=== PATIENT | female | born 1960 | race Two or more races ===

== ENCOUNTER 2020-09-10 22:21 | Emergency (ER) | payer OTHER ==
[~2020-09-10] VITALS: Ht 152.4 cm; Wt 54.6 kg
[2020-09-10 23:05] LABS: BILIRUBIN,URINE NEGATIVE (NEG); CLARITY,URINE CLEAR; COLOR,URINE YELLOW; NITRITE,URINE NEGATIVE (NEG); PROTEIN,URINE NEGATIVE (NEG-TRACE)
--- NOTE | 2020-09-10 23:05 | PHYS DOC ---
Past Medical History Past Medical History: Gallstones Past Surgical History: Additional Past Surgical Histo: X3 Smoking Status: Never Smoker Alcohol Use: None General Adult EDM: Chief Complaint: ABDOMINAL PAIN HPI: HPI: Patient is a 60 year old female presents with a chief complaint of abdominal pain. Patient states she has a past medical history of gallstones. Patient states pain is located primarily in the right upper quadrant with radiation to bilateral flanks. Patient states she has associated nausea but has not vomited or had episodes of diarrhea. Onset of abdominal pain was comes and goes since onset. History obtained from the patient via [employer] phone. Review of Systems: Review of Systems: Constitutional: Denies fever or chills. [] Eyes: Denies change in visual acuity. [] HENT: Denies nasal congestion or sore throat. [] Respiratory: Denies cough or shortness of breath. [] Cardiovascular: Denies chest pain or edema. [] GI: Positive abdominal pain, Positive nausea, no vomiting, bloody stools or diarrhea. [] : Denies dysuria. [] Musculoskeletal: Denies back pain or joint pain. [] Integument: Denies rash. [] Neurologic: Denies headache, focal weakness or sensory changes. [] Endocrine: Denies polyuria or polydipsia. [] Lymphatic: Denies swollen glands. [] Psychiatric: Denies depression or anxiety. [] Heart Score: Risk Factors: Risk Factors: DM, Current or recent (<one month) smoker, HTN, HLP, family history of CAD, obesity. Risk Scores: Score 0 - 3: 2.5% MACE over next 6 weeks - Discharge Home Score 4 - 6: 20.3% MACE over next 6 weeks - Admit for Clinical Observation Score 7 - 10: 72.7% MACE over next 6 weeks - Early Invasive Strategies Current Medications: Current Medications Medications (Trade) Dose Ordered Sig/Kwame Start Time Stop Time Status Last Admin Dose Admin Morphine Sulfate (Morphine Sulfate) 2 mg 1X ONCE 09/10/20 23:30 09/10/20 23:31 Ondansetron HCl (Zofran) 4 mg 1X ONCE 09/10/20 23:30 09/10/20 23:31 Allergies: Allergies: Allergies Coded Allergies Type Severity Reaction Last Updated Verified No Known Drug Allergies 09/10/20 No Physical Exam: PE: General: alert, no acute distress. Skin: warm, dry and intact. Head:: Normocephalic, atraumatic. Neck: Trachea midline. Eyes: EOMI, Normal conjunctiva, No drainage CARDIOVASCULAR: Regular rate and rhythm RESPIRATORY: No respiratory distress Back: Full range of motion. MUSCULOSKELETAL: Full range of motion of bilateral upper and lower extremities. GASTROINTESTINAL: Abdomen soft without rebound or guarding. Tenderness palpation right upper quadrant and epigastric NEUROLOGICAL: Alert and noted to person, place and time. No neurological deficits observed Psychiatric: Cooperative. Normal judgment Current Patient Data: Labs: Laboratory Tests Test 09/10/20 22:40 POC Urine HCG, Qualitative Hcg negative (Negative) Vital Signs: Vital Signs Date Time Temp Pulse Resp B/P (MAP) Pulse Ox O2 Delivery O2 Flow Rate FiO2 09/10/20 22:40 97.6 80 16 147/86 (106) 100 Room Air 97.6 EKG: EKG: [] Radiology/Procedures: Radiology/Procedures: [] Impression: The right kidney measures approximately 9.2 cm in length noting that the inferior pole was difficult to visualize due to bowel gas. No hydronephrosis. Unremarkable IVC at the liver. Impression: 1. Several gallstones however without ancillary findings by ultrasound to suggest acute cholecystitis. If there is ongoing concern a HIDA scan could be performed. Normal common bile duct caliber. 2. Unremarkable liver and partially assessed right kidney and spleen. Course & Med Decision Making: Course & Med Decision Making Pertinent Labs and Imaging studies reviewed. (See chart for details) [] Patient was evaluated for chief complaint. Work-up consisted of laboratory analysis and radiologic imaging. Results reviewed and discussed with patient. Gallbladder consistent with cholelithiasis no ultrasound findings of acute cholecystitis. Patient's pain was treated with morphine patient's nausea was treated with Zofran. Symptoms improved post treatment. Patient was discharged home with Jelm and Zofran. Patient was given referral to on-call general surgery. Vladimir Disclaimer: Vladimir Disclaimer: This electronic medical record was generated, in whole or in part, using a voice recognition dictation system. Departure Departure Impression: Primary Impression: Abdominal pain Additional Impression: Cholelithiasis Disposition: 01 DC HOME SELF CARE/HOMELESS Condition: STABLE Patient Instructions: Cholelithiasis Scripts Ondansetron Hcl (ZOFRAN) 4 Mg Tablet 1 TAB PO Q6HRS, #20 TAB Prov: DEMARCUS SU DO 09/11/20 Hydrocodone/Acetaminophen (Hydrocodone-Acetamin 5-325 mg) 1 Each Tablet 1 EACH PO Q4-6HRS, #20 TAB Prov: DEMARCUS SU DO 09/11/20 DEMARCUS SU DO Sep 10, 2020 23:05
[2020-09-10 23:11] LABS: BASO % 0 % (0-3); EOS % 0 % (0-3); HEMATOCRIT 41.7 % (36.0-47.0); HEMOGLOBIN 14.1 g/dL (12.0-15.5); LYMPH # 1.4 x10^3/uL (1.0-4.8); LYMPH % 15 % (24-48); MEAN CORPUSCULAR HEMOGLOBIN 30 pg (25-35); MEAN CORPUSCULAR HGB CONC 34 g/dL (31-37); MEAN CORPUSCULAR VOLUME 88 fL (79-100); MONO # 0.2 x10^3/uL (0.0-1.1); MONO % 3 % (0-9); NEUT # 7.3 x10^3/uL (1.8-7.7); NEUT % 82 % (31-73); PLATELET COUNT 256 x10^3/uL (140-400); RED BLOOD COUNT 4.76 x10^6/uL (3.50-5.40); RED CELL DISTRIBUTION WIDTH 13.3 % (11.5-14.5)
[2020-09-10 23:15] LABS: BACTERIA,URINE 0 /HPF (0-FEW); RBC,URINE 0 /HPF (0-2); WBC,URINE RARE /HPF (0-4)
[2020-09-10 23:17] LABS: CALCIUM 8.9 mg/dL (8.5-10.1); CREATININE 0.8 mg/dL (0.6-1.0); GFR 73.4; POTASSIUM 4.3 mmol/L (3.5-5.1)
[2020-09-10 23:23] LABS: TOTAL BILIRUBIN 0.4 mg/dL (0.2-1.0); TOTAL PROTEIN 8.1 g/dL (6.4-8.2)
[2020-09-10] MEDS ORDERED: ONDANSETRON PF 4 MG/2 ML VIAL. IVP ONE (23:30)
[2020-09-10] MEDS ORDERED: MORPHINE SULFATE 2 MG/ML VIAL. IV ONE (23:30)
--- NOTE | 2020-09-10 23:53 | RAD ---
STUDY: Realtime grayscale and color Doppler ultrasonography of the right upper quadrant INDICATION: Right upper quadrant abdominal pain. History of gallstones. COMPARISON: None available. Findings: What is seen of the pancreas is unremarkable. Within normal limits size and echogenicity of the liver. Patent main portal vein with normal flow dir ection. The gallbladder is notable only for several shadowing stones. Normal wall thickness at 0.2 cm. No son ographic Nguyen's sign was observed. Normal common bile duct caliber at 0.4 cm. The right kidney measures approximately 9.2 cm in length noting that the inferior pole was difficult to visualize due to bowel gas. No hydronephrosis. Unremarkable IVC at the liver. Impression: 1. Several gallstones however without ancillary findings by ultrasound to suggest acute cholecystiti s. If there is ongoing concern a HIDA scan could be performed. Normal common bile duct caliber. 2. Unremarkable liver and partially assessed right kidney and spleen. Electronically signed by: MARCUS MICHELLE MD (09/10/2020 11:51 PM) [facility]
[2020-09-11] MEDS ORDERED: HYDR-2759 PO (00:08)
[2020-09-11] MEDS ORDERED: ONDA4TAB7 PO (00:08)
[2020-09-11 00:23] VITALS: BP 129/68
[2020-10-04] MEDS ORDERED: ACET325T21 PO (16:52)
[2020-10-04] MEDS ORDERED: CHOL500050 PO (16:52)
[2020-10-04] MEDS ORDERED: CALC600T23 PO (16:52)
== END 2020-09-11 00:25 | disposition home or self-care (01) ==
LOC: ER 22:21
DX: K80.20 Calculus of gallbladder without cholecystitis without obstruction (principal)
CPT/HCPCS: 36415; 76705; 80053; 81001; 81025; 83690; 85025; 96374; 96375; 99285; J2270; J2405

== ENCOUNTER → 2020-10-01 | Outpatient (CLI) | payer OTHER ==
[2020-09-11 00:23] VITALS: BP 129/68
[~2020-10-01] MED LIST: ACET325T21 PO; CALC600T23 PO; CHOL500050 PO; HYDR-2759 PO; ONDA4TAB7 PO
== END ==
LOC: LAB 14:08
PROVIDERS: ATTEND Surgery
DX: Z01.812 Encounter for preprocedural laboratory examination (principal); K80.20 Calculus of gallbladder without cholecystitis without obstruction; Z20.822 Contact with and (suspected) exposure to COVID-19
CPT/HCPCS: U0003

== ENCOUNTER 2020-10-06 06:04 | Day surgery (SDC) | payer OTHER ==
[~2020-10-06] VITALS: Ht 147.3 cm; Wt 54.0 kg
[~2020-10-06 06:04] MED LIST changes: +HYDROmorphone 2 MG/ML VIAL IVP PRN; +IV RINGERS,LACTATED 1000ML 1,000 ML IV SCH; +MORPHINE SULFATE 2 MG/ML VIAL. IVP PRN; +PROCHLORPERAZINE 10 MG/2 ML VIAL. IVP PRN; +fentaNYL PF VIAL 100 MCG/2 ML VIAL IVP PRN
[2020-10-06] MEDS ORDERED: ROCURONIUM 50 MG/5 ML VIAL. ONE (06:38)
[2020-10-06] MEDS ORDERED: ONDANSETRON PF 4 MG/2 ML VIAL. ONE ×2 (06:38→09:32)
[2020-10-06] MEDS ORDERED: PROPOFOL 10 MG/ML (20ML) VIAL. IV ONE (06:38)
[2020-10-06] MEDS ORDERED: DEXAMETHASONE SOD PHOS 20 MG/5 ML VIAL. ONE (06:38)
[2020-10-06] MEDS ORDERED: LIDOCAINE 2% PF 5 ML VIAL. ONE (06:38)
[2020-10-06] MEDS ORDERED: BUPIVACAINE MPF 0.5% 30 ML VIAL. ONE (07:02)
[2020-10-06] MEDS ORDERED: IOHEXOL 300 MG/ML 50 ML VIAL. ONE (07:02)
[2020-10-06] MEDS ORDERED: SURGICEL HEMOSTAT 4X8 EACH. ONE (07:02)
[2020-10-06] MEDS ORDERED: fentaNYL PF VIAL 100 MCG/2 ML VIAL ONE ×3 (07:05→09:06)
[2020-10-06] MEDS ORDERED: MIDAZOLAM HCL/PF 2 MG/2 ML VIAL. ONE (07:05)
[2020-10-06] MEDS ORDERED: NEOSTIGMINE METHYLSULFATE 5 MG/5 ML SYRINGE. ONE (07:32)
[2020-10-06] MEDS ORDERED: GLYCOPYRROLATE 1 MG/5 ML VIAL. ONE (07:32)
--- NOTE | 2020-10-06 08:29 | RAD ---
Intraoperative cholangiogram INDICATION: Cholangiogram in OR with C-arm. TECHNIQUE AND FINDINGS: Fluoroscopy time was 0.4 minutes. 4 images were acquired intraoperatively and show opacification of t he cystic duct, common bile duct, and some branches of the intrahepatic bile ducts. No filling defect s in the common bile duct are identified to suggest retained common bile duct stones. There is progre ssive opacification of the duodenum, implying a patent common duct. IMPRESSION: No evidence of choledocholithiasis on intraoperative cholangiogram. Electronically signed by: Graham Quiroga MD (10/06/2020 8:27 AM) [id number]
[2020-10-06] MEDS ORDERED: KETOROLAC 30 MG/ML VIAL. ONE (08:32)
--- NOTE | 2020-10-06 08:40 | PDOC4 ---
Operative Note Operative Note Operative Note: Preoperative Diagnosis: Symptomatic cholelithiasis Postoperative Diagnosis: Same Procedure: Laparoscopic cholecystectomy with intraoperative cholangiogram Surgeons: Roberto Carlos Smoke Jumper: Wen CARRIZALES Anesthesia: Gen. Estimated Blood Loss: 10 mL Specimen: Gallbladder to pathology Drains: None Complications: None Indications: The patient is a 60-year-old female who is been experiencing recurrent upper abdominal pain consistent with biliary colic. During her evaluation a sonogram showed gallstones. Surgical treatment was offered by ms ans of a laparoscopic cholecystectomy. The risks of surgery were discussed which include bleeding, infection, bile duct injury, bile leak, pain, the potential for additional surgeries or procedures. The patient understands and would like to proceed. Description: The patient was taken to the operating room and laid supine on the operating table. General anesthesia was performed. The abdomen was prepped with ChloraPrep and draped in a standard surgical fashion. A small incision was made in the right upper quadrant through to visualize 5 mm trocar was inserted. A pneumoperitoneum was created and the laparoscope was introduced. In the right lower quadrant a 5 mm trocar was inserted and the camera port was moved to that location. In the upper midabdomen a 5 mm trocar was inserted and in the right upper quadrant a 2.3 mm mini lap grasper was inserted. The gallbladder was retracted cephalad. The cystic duct was dissected free from surrounding tissues. One clip was placed on the duct near the gallbladder junction. An opening was made in the duct and a cholangiocatheter placed within and secured with a clip. Using contrast dye and fluoroscopy an intraoperative cholangiogram was performed that appeared unremarkable. The clip and catheter were then withdrawn. Three clips were placed on the cystic duct and it was divided. The cystic artery was then identified, dissected free, doubly clipped and divided as well. The gallbladder was then mobilized away from the liver with cautery. A small piece of Surgicel was placed on the gallbladder fossa to assist with any oozing. The right lower quadrant 5 millimeter trocar was exchanged for an 11 millimeter trocar. The gallbladder was then placed in an endoscopic bag and extracted at that trocar site. The fascia there was closed with an 0 Vicryl suture and infiltrated with 0.5% marcaine. All blood and irrigation fluid was suctioned and hemostasis was good. The remaining ports were removed and the pneumoperitoneum was relieved. The skin incisions were closed using 4-0 Monocryl suture. Steri-Strips and dressings were then applied. The patient tolerated the procedure well and was sent to the recovery room in stable condition. At the end of the case all counts were correct. DEL PARKER MD Oct 06, 2020 08:40
--- NOTE | 2020-10-06 08:42 | DISCH ---
DISCHARGE INSTRUCTIONS Condition on Discharge Condition on Discharge: Stable Activity After Discharge Activity Instructions for Disc: Other, see below (no lifting over 20 lbs X 2 weeks) Diet after Discharge Diet after Discharge: Regular Wound Incision Care Wound/Incision Care: Other, see below (may remove bandaids tomorrow and shower, steristrips fall off on their own) Follow-Up Follow up with: Dr Parker in office in 2 weeks, call for appointment [phone] DEL PARKER MD Oct 06, 2020 08:42
[2020-10-06] MEDS: fentaNYL PF VIAL 100 MCG/2 ML VIAL IVP PRN ×2 (09:08→09:25)
[2020-10-06] MEDS ORDERED: ONDANSETRON PF 4 MG/2 ML VIAL. IVP ONE (09:45)
[2020-10-06] MEDS ORDERED: HYDROcodone/APAP 5/325MG 1 TAB TABLET PO ONE ×2 (10:00)
[2020-10-06 10:30] VITALS: BP 119/66
--- NOTE | 2020-10-08 17:07 | PATHOLOGY ---
[facility] Accession Number: [id number] . 01 Material submitted: . gallbladder - GALLBLADDER AND CONTENTS . 01 Clinical history: . CHOLECYSTECTOMY GALLSTONE . 02 Diagnosis: Gallbladder, cholecystectomy: - Cholelithiasis. - Cholesterolosis. - Chronic cholecystitis. (JPM:[facility]; 10/08/2020) S 10/08/2020 1622 Local . 02 Comment: There is no evidence of malignancy. (JPM:lauren; 10/08/2020) . 02 Electronically signed: . Hugh Billingsley MD, Pathologist NPI- [id number] . 01 Gross description: . Fixative: Formalin Labeled: Gallbladder and contents Specimen received: Previously punctured gallbladder Dimensions: 5.8 x 2.2 x 1.5 cm Serosa: Blue-erwin Mucosa: Velvety, bile-stained with mild, diffuse cholesterolosis Average wall thickness: 0.1 cm Calculi: A single yellow-brown, nodular calculus is present Abnormalities: None identified . [facility] Manager body, fundus, and the cystic duct margin in A1. (CAA; 10/07/2020) QAC/QAC 10/07/2020 1846 Local . 02 Pathologist provided ICD-10: K80.10, K82.4 . 02 CPT . 116400 Specimen Comment: A courtesy copy of this report has been sent to [phone] Specimen Comment: Report sent to Performed at: [address] [facility] [address], [place] [id number] MD Erasmo Vizcaino MD Phone: [phone] Performed at: 02 [facility] [address], [place] [id number] MD Hugh Billingsley MD Phone: [phone]
== END 2020-10-06 11:07 | disposition home or self-care (01) ==
LOC: SURG 06:04
PROVIDERS: ATTEND Surgery
DX: K80.10 Calculus of gallbladder with chronic cholecystitis without obstruction (principal); Z79.899 Other long term (current) drug therapy; Z98.890 Other specified postprocedural states
CPT/HCPCS: 47563; 74300; A4213; A4314; A4364; A4930; A6219; C1887; J0690; J1100; J1885; J2250; J2405; J2704; J2710; J3010; J3490; Q9967; A4452; A4657